=== PATIENT | female | born 1960 | race Caucasian/White ===

== ENCOUNTER 2020-05-16 10:57 | Outpatient (CLI) | payer MEDICARE, MEDICAID, SELFPAY ==
[2020-05-16 12:14] LABS: Alanine Aminotransferase 12 U/L (4-35); Alkaline Phosphatase 106 U/L (38-126); Aspartate Amino Transferase 17 U/L (14-36); Bilirubin,Total 0.2 mg/dL (0.2-1.3); Blood Urea Nitrogen 6 mg/dL (7-17); Calcium 8.4 mg/dL (8.4-10.2); Carbon Dioxide 31 mmol/L (22-30); Chloride 104 mmol/L (98-107); Cholesterol 130 mg/dL (0-200); Estimated Glomerular Filt Rate > 60; Glucose 104 mg/dL (65-105); HDL Direct 37 mg/dL; Potassium 4.1 mmol/L (3.4-5.0); Sodium 141 mmol/L (137-145); Triglycerides 122 mg/dL (<150)
[2020-05-16 12:25] LABS: LDL Cholesterol Direct 65 mg/dL
[2020-05-16 12:41] LABS: Thyroid Stimulating Hormone 0.249 uIU/mL (0.465-4.680)
[2020-05-16 12:52] LABS: Free T4 Free Thyroxine 1.34 ng/mL (0.78-2.19); Vitamin D 25 Hydroxy 29.7 ng/mL
== END 2020-05-16 10:58 | disposition home or self-care (01) ==
LOC: ANHLAB 10:58
PROVIDERS: PCP Internal Medicine; Visit Provider Nurse Practitioner
DX: E78.5 Hyperlipidemia, unspecified (principal); E53.8 Deficiency of other specified B group vitamins; E55.9 Vitamin D deficiency, unspecified; E03.9 Hypothyroidism, unspecified
CPT/HCPCS: 36415; 80048; 80061; 80076; 82306; 82607; 84439; 84443

== ENCOUNTER 2021-03-13 12:13 | Outpatient (CLI) | payer MEDICARE, SELFPAY ==
[2021-03-13 12:54] LABS: Alanine Aminotransferase 10 U/L (4-35); Albumin Level 3.7 g/dL (3.5-5.1); Alkaline Phosphatase 91 U/L (38-126); Anion Gap 4 mmol/L (8-16); Aspartate Amino Transferase 17 U/L (14-36); Bilirubin,Total < 0.1 mg/dL (0.2-1.3); Blood Urea Nitrogen 10 mg/dL (7-17); Calcium 8.5 mg/dL (8.4-10.2); Carbon Dioxide 28 mmol/L (22-30); Chloride 111 mmol/L (98-107); Cholesterol 157 mg/dL (0-200); Estimated Glomerular Filt Rate > 60; Glucose 92 mg/dL (65-105); HDL Direct 40 mg/dL; Potassium 4.1 mmol/L (3.4-5.0); Sodium 143 mmol/L (137-145); Triglycerides 179 mg/dL (<150)
[2021-03-13 13:03] LABS: Hemoglobin A1C 5.4 % (<5.7)
[2021-03-13 13:05] LABS: LDL Cholesterol Direct 77 mg/dL
[2021-03-13 14:03] LABS: Vitamin D 25 Hydroxy 26.6 ng/mL
== END 2021-03-13 12:14 | disposition home or self-care (01) ==
PROVIDERS: PCP Internal Medicine; Visit Provider Nurse Practitioner
DX: E78.5 Hyperlipidemia, unspecified (principal); E55.9 Vitamin D deficiency, unspecified; E11.9 Type 2 diabetes mellitus without complications; E03.9 Hypothyroidism, unspecified
CPT/HCPCS: 36415; 80053; 80061; 82306; 83036; 84443